=== PATIENT | male | born 1950 | race Caucasian/White ===

== ENCOUNTER 2022-03-11 14:49 | Inpatient (IN) | payer MEDICARE ==
[2022-03-11] MEDS ORDERED: Aspirin Chewable 81 MG TAB ONE (15:10)
[2022-03-11] MEDS ORDERED: Nitroglycerin 2% Ointment 1 INCH/1 GM Packet ONE (15:11)
[2022-03-11 15:25] LABS: #Eosinphils 0.2 10x3/uL (0.0-0.5); #Monocytes 0.6 10x3/uL (0.0-1.1); #Neutrophils 6.1 10x3/uL (1.5-8.4); %Basophils 0.5 % (0.0-2.0); %Eosinophils 2.2 % (0.0-6.0); %Lymphocytes 15.6 % (18.0-47.0); %Monocytes 6.7 % (0.0-10.0); %Neutrophils 74.5 % (40.0-75.0); Hemoglobin 15.2 g/dL (13.5-17.5); Mean Corpuscular HGB CONC 32.5 g/dL (32.0-36.0); Mean Corpuscular Volume 82.9 fl (81.2-95.1); Mean Platelet Volume 9.8 fl (7.4-10.4); Platelet Count 205 10x3/uL (150-450); RBC Distribution Width 16.4 % (11.5-14.5); Red Blood Cell (RBC) Count 5.63 10x6/uL (4.32-5.72); White Blood Cell (WBC) Count 8.2 10x3/uL (3.5-10.5)
[2022-03-11 15:38] LABS: ALT (SGPT) 29 U/L (8-55); AST (SGOT) 19 U/L (5-34); Albumin 4.3 g/dL (3.4-4.8); Alkaline Phosphatase 112 U/L (40-110); Anion Gap 16 mmol/L (10-20); BUN (Urea Nitrogen) 29 mg/dL (8.4-25.7); Bilirubin, Total 0.8 mg/dL (0.2-1.2); Calc. Creatinine Clearance 0 mL/min (70-130); Calcium 9.6 mg/dL (7.8-10.44); Carbon Dioxide 22 mmol/L (23-31); Chloride 108 mmol/L (98-107); Estimated GFR 52; Globulin 2.7 g/dL (2.4-3.5); Glucose 277 mg/dL (80-115); Lipase 18 U/L (8-78); Potassium 4.5 mmol/L (3.5-5.1); Sodium 141 mmol/L (136-145)
[2022-03-11] MEDS ORDERED: Lorazepam 2 MG/ML VIAL ONE (16:11)
[2022-03-11] MEDS ORDERED: Nitroglycerin 0.4 MG TAB (25 Tab Bottle) SL PRN (16:58)
[2022-03-11] MEDS ORDERED: Acetaminophen 325 MG TAB PO PRN (17:03)
[2022-03-11] MEDS ORDERED: Ondansetron ODT 4 MG TAB PO PRN (17:03)
[2022-03-11] MEDS ORDERED: Ondansetron PF 4 MG/2 ML Vial IVP PRN (17:03)
[2022-03-11 17:27] LABS: Magnesium 1.9 mg/dL (1.6-2.6)
[2022-03-11 18:32] VITALS: BMI 37.6
[2022-03-11 19:27] LABS: Troponin I Less than 0.010 ng/mL (< 0.028)
[2022-03-11] MEDS: Enoxaparin Sodium 40 MG/0.4 ML SYRINGE SC SCH (20:37)
[2022-03-11] MEDS ORDERED: Atorvastatin Calcium 20 MG TAB PO SCH (21:00)
[2022-03-11] MEDS: Nitroglycerin 2% Ointment 1 INCH/1 GM Packet TOP SCH (21:50)
[2022-03-11] MEDS ORDERED: buPROPion 75 MG TAB PO SCH (22:00)
[2022-03-11] MEDS ORDERED: Dextrose 50% Abboject 50 ML SYRINGE IVP PRN (23:30)
[2022-03-11] MEDS ORDERED: Dextrose 5% in Water 1,000 ML IV PRN (23:30)
[2022-03-11] MEDS: HumaLOG 300 UNITS/3 ML VIAL SC PRN (23:50)
[2022-03-12 05:58] LABS: #Basophils 0.1 10x3/uL (0.0-0.2); #Eosinphils 0.3 10x3/uL (0.0-0.5); #Monocytes 0.6 10x3/uL (0.0-1.1); #Neutrophils 3.9 10x3/uL (1.5-8.4); %Basophils 0.8 % (0.0-2.0); %Eosinophils 4.5 % (0.0-6.0); %Lymphocytes 23.9 % (18.0-47.0); %Monocytes 9.7 % (0.0-10.0); %Neutrophils 60.5 % (40.0-75.0); Hemoglobin 13.3 g/dL (13.5-17.5); Mean Corpuscular HGB CONC 32.4 g/dL (32.0-36.0); Mean Corpuscular Volume 83.4 fl (81.2-95.1); Mean Platelet Volume 9.7 fl (7.4-10.4); Platelet Count 179 10x3/uL (150-450); RBC Distribution Width 15.9 % (11.5-14.5); Red Blood Cell (RBC) Count 4.93 10x6/uL (4.32-5.72); White Blood Cell (WBC) Count 6.4 10x3/uL (3.5-10.5)
[2022-03-12 06:00] LABS: Anion Gap 14 mmol/L (10-20); BUN (Urea Nitrogen) 24 mg/dL (8.4-25.7); Calc. Creatinine Clearance 102 mL/min (70-130); Calcium 8.8 mg/dL (7.8-10.44); Carbon Dioxide 21 mmol/L (23-31); Chloride 112 mmol/L (98-107); Estimated GFR 67; Glucose 199 mg/dL (80-115); Sodium 143 mmol/L (136-145)
[2022-03-12] MEDS: Nitroglycerin 2% Ointment 1 INCH/1 GM Packet TOP SCH ×3 (07:31→23:00)
[2022-03-12] MEDS: Enoxaparin Sodium 40 MG/0.4 ML SYRINGE SC SCH ×2 (08:49→22:30)
[2022-03-12] MEDS: Aspirin Chewable 81 MG TAB PO SCH (08:49)
[2022-03-12] MEDS: buPROPion 75 MG TAB PO SCH ×2 (08:50→22:58)
[2022-03-12] MEDS: Lorazepam 1 MG TAB PO PRN ×2 (13:14→23:01)
[2022-03-12] MEDS: HumaLOG 300 UNITS/3 ML VIAL SC PRN ×2 (16:26→22:00)
[2022-03-12] MEDS: Rosuvastatin 20 MG TAB PO SCH (22:15)
[2022-03-12] MEDS: Icosapent Ethyl 1 GM CAPSULE PO SCH (22:58)
[2022-03-13] MEDS: Nitroglycerin 2% Ointment 1 INCH/1 GM Packet TOP SCH ×3 (05:23→20:56)
[2022-03-13] MEDS: HumaLOG 300 UNITS/3 ML VIAL SC PRN ×2 (06:24→20:55)
[2022-03-13] MEDS: Clopidogrel Bisulfate 75 MG TAB PO SCH (09:25)
[2022-03-13] MEDS: Enoxaparin Sodium 40 MG/0.4 ML SYRINGE SC SCH ×2 (09:25→20:53)
[2022-03-13] MEDS: Aspirin Chewable 81 MG TAB PO SCH (09:25)
[2022-03-13] MEDS: buPROPion 75 MG TAB PO SCH ×2 (09:26→20:55)
[2022-03-13] MEDS: Icosapent Ethyl 1 GM CAPSULE PO SCH ×2 (09:27→20:59)
[2022-03-13] MEDS: Lorazepam 1 MG TAB PO PRN ×2 (09:36→20:55)
[2022-03-13] MEDS: Lantus 1000 UNITS/10 ML VIAL SC SCH (09:39)
[2022-03-13] MEDS: Lisinopril 2.5 MG TAB PO SCH (14:53)
[2022-03-13] MEDS: HumaLOG 300 UNITS/3 ML VIAL SC SCH (17:11)
[2022-03-13] MEDS: Rosuvastatin 20 MG TAB PO SCH (20:55)
[2022-03-13] MEDS ORDERED: Lantus 1000 UNITS/10 ML VIAL SC SCH (21:00)
[2022-03-14 04:26] LABS: Hemoglobin 13.4 g/dL (13.5-17.5); Mean Corpuscular HGB CONC 31.7 g/dL (32.0-36.0); Mean Corpuscular Hemoglobin 27.2 pg (27.0-33.0); Mean Platelet Volume 10.2 fl (7.4-10.4); Platelet Count 195 10x3/uL (150-450); RBC Distribution Width 15.7 % (11.5-14.5); Red Blood Cell (RBC) Count 4.92 10x6/uL (4.32-5.72); White Blood Cell (WBC) Count 7.4 10x3/uL (3.5-10.5)
[2022-03-14 04:34] LABS: Anion Gap 16 mmol/L (10-20); BUN (Urea Nitrogen) 22 mg/dL (8.4-25.7); Calc. Creatinine Clearance 84 mL/min (70-130); Calcium 8.6 mg/dL (7.8-10.44); Carbon Dioxide 23 mmol/L (23-31); Cardiac Risk 3.3 (Less than 4.5); Chloride 108 mmol/L (98-107); Cholesterol 107 mg/dl (< 200 Desired); Estimated GFR 53; Glucose 286 mg/dL (80-115); HDL Cholesterol 32 mg/dL (>60 Neg Risk); LDL Cholesterol, Calculated 41 mg/dL; Potassium 4.5 mmol/L (3.5-5.1); Sodium 142 mmol/L (136-145); Triglycerides 168 mg/dL (Less than 150)
[2022-03-14 04:35] LABS: INR-International Normal Ratio 0.9; PTT 25.4 sec (22.0-33.0); Prothrombin Time 10.3 sec (9.5-12.1)
[2022-03-14] MEDS ORDERED: [UNRECOGNIZED DRUG - REMARK] FS SCH (05:00)
[2022-03-14] MEDS: Nitroglycerin 2% Ointment 1 INCH/1 GM Packet TOP SCH ×2 (06:13→14:09)
[2022-03-14] MEDS: HumaLOG 300 UNITS/3 ML VIAL SC SCH ×4 (06:14→16:15)
[2022-03-14] MEDS: Aspirin Chewable 81 MG TAB PO SCH (06:15)
[2022-03-14] MEDS: Lisinopril 2.5 MG TAB PO SCH (06:15)
[2022-03-14] MEDS: Clopidogrel Bisulfate 75 MG TAB PO SCH (06:16)
[2022-03-14] MEDS: buPROPion 75 MG TAB PO SCH (06:18)
[2022-03-14] MEDS: Lantus 1000 UNITS/10 ML VIAL SC SCH (07:48)
[2022-03-14] MEDS: Icosapent Ethyl 1 GM CAPSULE PO SCH (07:49)
[2022-03-14] MEDS ORDERED: Nitroglycerin 50 MG/250 ML BOT 250 ML ONE (08:15)
[2022-03-14] MEDS ORDERED: Bivalirudin 250 MG VIAL ONE (08:16)
[2022-03-14] MEDS ORDERED: Adenosine 6 MG/2 ML VIAL ONE (08:16)
[2022-03-14] MEDS ORDERED: Lidocaine 1% PF 5 ML VIAL ONE (08:16)
[2022-03-14] MEDS ORDERED: Heparin 10,000 UNITS/ 10 ML VIAL ONE (08:16)
[2022-03-14] MEDS ORDERED: Verapamil 5 MG/2 ML VIAL ONE (08:17)
[2022-03-14] MEDS ORDERED: Midazolam HCl 2 mg/2 ml Vial ONE (08:53)
[2022-03-14] MEDS ORDERED: Fentanyl 100 MCG/2 ML VIAL ONE (08:53)
[2022-03-14] MEDS ORDERED: Iopamidol 300 61% 100 ML VIAL FS ONE (08:58)
[2022-03-14] MEDS ORDERED: Tamsulosin HCl 0.4 MG CAP PO SCH (09:00)
[2022-03-14] MEDS: Sodium Chloride 0.9% 1,000 ML IV SCH ×2 (10:42→15:31)
[2022-03-14] MEDS: Lorazepam 1 MG TAB PO PRN (15:37)
[2022-03-14 17:11] VITALS: BP 134/73; TEMP 98
== END 2022-03-14 17:53 | disposition home health service (06) | DRG 287 ==
LOC: CSHERS 14:49 → CSHTELE 17:40 → OBSVTOIN 03-12 15:28
PROVIDERS: ADMIT Internal Medicine Geriatric Medicine; ATTEND Internal Medicine
PROC: 4A023N7 Measurement of Cardiac Sampling and Pressure, Left Heart, Percutaneous Approach (ICD-10-PCS; principal; 2022-03-14)
PROC: B2111ZZ Fluoroscopy of Multiple Coronary Arteries using Low Osmolar Contrast (ICD-10-PCS; 2022-03-14)
PROC: B2151ZZ Fluoroscopy of Left Heart using Low Osmolar Contrast (ICD-10-PCS; 2022-03-14)
DX: I25.118 Atherosclerotic heart disease of native coronary artery with other forms of angina pectoris (principal); I69.352 Hemiplegia and hemiparesis following cerebral infarction affecting left dominant side; N17.9 Acute kidney failure, unspecified; E78.5 Hyperlipidemia, unspecified; N18.31 Chronic kidney disease, stage 3a; I12.9 Hypertensive chronic kidney disease with stage 1 through stage 4 chronic kidney disease, or unspecified chronic kidney disease; E11.22 Type 2 diabetes mellitus with diabetic chronic kidney disease; E11.51 Type 2 diabetes mellitus with diabetic peripheral angiopathy without gangrene; F41.9 Anxiety disorder, unspecified; Z87.442 Personal history of urinary calculi; Z98.890 Other specified postprocedural states; Z90.49 Acquired absence of other specified parts of digestive tract; Z95.5 Presence of coronary angioplasty implant and graft; Z79.82 Long term (current) use of aspirin; Z79.4 Long term (current) use of insulin; Z79.899 Other long term (current) drug therapy; Z79.01 Long term (current) use of anticoagulants; Z79.84 Long term (current) use of oral hypoglycemic drugs; Z83.3 Family history of diabetes mellitus; Z82.49 Family history of ischemic heart disease and other diseases of the circulatory system; Z87.891 Personal history of nicotine dependence
CPT/HCPCS: 36415; 36416; 71045; 80048; 80053; 80061; 83690; 83735; 83880; 84443; 84484; 85025; 85027; 85610; 85730; 93005; 93306; 93458; 94660; 94760; 96372; 96374; 99152; 99153; C1769; C1894; G0378; J0153; J0583; J1644; J1650; J1815; J2060; J2250; J3010; J7050; Q9967

== ENCOUNTER 2022-05-25 16:29 | Emergency (ER) | payer MEDICARE ==
[~2022-05-25 16:29] MED LIST: Iopamidol 370 76% 100 ML VIAL ONE
[2022-05-25 17:19] LABS: #Eosinphils 0.1 10x3/uL (0.0-0.5); #Monocytes 0.5 10x3/uL (0.0-1.1); #Neutrophils 4.9 10x3/uL (1.5-8.4); %Basophils 0.6 % (0.0-2.0); %Eosinophils 1.7 % (0.0-6.0); %Lymphocytes 20.4 % (18.0-47.0); %Monocytes 7.2 % (0.0-10.0); %Neutrophils 69.4 % (40.0-75.0); Mean Corpuscular HGB CONC 33.2 g/dL (32.0-36.0); Mean Corpuscular Hemoglobin 27.5 pg (27.0-33.0); Mean Corpuscular Volume 82.7 fl (81.2-95.1); Mean Platelet Volume 10.4 fl (7.4-10.4); Platelet Count 169 10x3/uL (150-450); RBC Distribution Width 15.9 % (11.5-14.5); White Blood Cell (WBC) Count 7.1 10x3/uL (3.5-10.5)
[2022-05-25 17:32] LABS: ALT (SGPT) 16 U/L (8-55); AST (SGOT) 14 U/L (5-34); Albumin 3.6 g/dL (3.4-4.8); Alkaline Phosphatase 93 U/L (40-110); Anion Gap 14 mmol/L (10-20); BUN (Urea Nitrogen) 21 mg/dL (8.4-25.7); Bilirubin, Total 0.6 mg/dL (0.2-1.2); Calc. Creatinine Clearance 0 mL/min (70-130); Calcium 8.6 mg/dL (7.8-10.44); Carbon Dioxide 21 mmol/L (23-31); Chloride 111 mmol/L (98-107); Estimated GFR 55; Globulin 2.1 g/dL (2.4-3.5); Glucose 175 mg/dL (80-115); Potassium 4.3 mmol/L (3.5-5.1); Protein, Total 5.7 g/dL (5.8-8.1); Sodium 142 mmol/L (136-145)
== END 2022-05-25 21:43 | disposition home or self-care (01) ==
LOC: CSHERS 16:29
DX: R07.2 Precordial pain (principal); R00.0 Tachycardia, unspecified; E11.9 Type 2 diabetes mellitus without complications; E78.5 Hyperlipidemia, unspecified; I10 Essential (primary) hypertension; Z79.4 Long term (current) use of insulin
CPT/HCPCS: 71045; 71275; 80053; 83880; 84484; 85025; 85379; 93005; 93010; Q9967

== ENCOUNTER 2022-08-02 14:52 | Emergency (ER) | payer MEDICARE ==
[2022-08-02 17:46] LABS: #Basophils 0.1 10x3/uL (0.0-0.2); #Eosinphils 0.1 10x3/uL (0.0-0.5); #Monocytes 0.8 10x3/uL (0.0-1.1); %Basophils 0.6 % (0.0-2.0); %Eosinophils 0.8 % (0.0-6.0); %Lymphocytes 13.2 % (18.0-47.0); %Neutrophils 76.9 % (40.0-75.0); Hemoglobin 13.9 g/dL (13.5-17.5); Mean Corpuscular HGB CONC 33.3 g/dL (32.0-36.0); Mean Corpuscular Volume 84.3 fl (81.2-95.1); Mean Platelet Volume 10.2 fl (7.4-10.4); Platelet Count 182 10x3/uL (150-450); RBC Distribution Width 16.2 % (11.5-14.5); Red Blood Cell (RBC) Count 4.96 10x6/uL (4.32-5.72); White Blood Cell (WBC) Count 10.4 10x3/uL (3.5-10.5)
[2022-08-02 17:49] LABS: ALT (SGPT) 14 U/L (8-55); AST (SGOT) 13 U/L (5-34); Albumin 3.7 g/dL (3.4-4.8); Alkaline Phosphatase 86 U/L (40-110); Anion Gap 14 mmol/L (10-20); BUN (Urea Nitrogen) 24 mg/dL (8.4-25.7); Bilirubin, Total 1.1 mg/dL (0.2-1.2); Calc. Creatinine Clearance 0 mL/min (70-130); Calcium 8.4 mg/dL (7.8-10.44); Carbon Dioxide 22 mmol/L (23-31); Chloride 104 mmol/L (98-107); Estimated GFR 46; Globulin 2.2 g/dL (2.4-3.5); Glucose 297 mg/dL (80-115); Potassium 4.3 mmol/L (3.5-5.1); Protein, Total 5.9 g/dL (5.8-8.1); Sodium 136 mmol/L (136-145)
[2022-08-02 17:56] LABS: Bilirubin Neg (Negative); Blood, Urine 10 (Negative); Clarity Clear (Clear); Glucose, Urine (Dipstick) >=1000 mg/dL (Negative); Ketone, Urine Negative (Negative); Leukocyte 100 (Negative); Nitrite Negative (Negative); Protein, Urine (Dipstick) 15 mg/dl (Neg-Trace); Urobilinogen Normal mg/dL (Less than 2)
[2022-08-02 18:06] LABS: Bacteria/HPF Rare-Few HPF (None Seen); RBC/HPF 0-3 HPF (0-3); Squamous Epithelial 0-3 HPF (0-3)
== END 2022-08-02 19:51 | disposition home or self-care (01) ==
LOC: CSHERS 14:52
DX: R20.2 Paresthesia of skin (principal); M79.89 Other specified soft tissue disorders; I25.10 Atherosclerotic heart disease of native coronary artery without angina pectoris; E11.9 Type 2 diabetes mellitus without complications; Z79.4 Long term (current) use of insulin; E78.5 Hyperlipidemia, unspecified; I10 Essential (primary) hypertension; Z86.73 Personal history of transient ischemic attack (TIA), and cerebral infarction without residual deficits
CPT/HCPCS: 71045; 80053; 81003; 81015; 83880; 84484; 85025; 93005

== ENCOUNTER 2022-12-30 16:51 | Emergency (ER) | payer MEDICARE ==
[2022-12-30 17:44] LABS: #Basophils 0.1 10x3/uL (0.0-0.2); #Eosinphils 0.2 10x3/uL (0.0-0.5); #Monocytes 0.7 10x3/uL (0.0-1.1); #Neutrophils 6.8 10x3/uL (1.5-8.4); %Basophils 0.6 % (0.0-2.0); %Eosinophils 2.4 % (0.0-6.0); %Lymphocytes 20.2 % (18.0-47.0); %Monocytes 6.7 % (0.0-10.0); %Neutrophils 69.7 % (40.0-75.0); Hemoglobin 13.6 g/dL (13.5-17.5); Mean Corpuscular Hemoglobin 28.5 pg (27.0-33.0); Mean Corpuscular Volume 86.2 fl (81.2-95.1); Mean Platelet Volume 10.4 fl (7.4-10.4); Platelet Count 173 10x3/uL (150-450); RBC Distribution Width 15.7 % (11.5-14.5); Red Blood Cell (RBC) Count 4.78 10x6/uL (4.32-5.72); White Blood Cell (WBC) Count 9.8 10x3/uL (3.5-10.5)
[2022-12-30 18:01] LABS: ALT (SGPT) 24 U/L (8-55); AST (SGOT) 24 U/L (5-34); Albumin 3.6 g/dL (3.4-4.8); Alkaline Phosphatase 99 U/L (40-110); Anion Gap 20 mmol/L (10-20); BUN (Urea Nitrogen) 31 mg/dL (8.4-25.7); Bilirubin, Total 1.1 mg/dL (0.2-1.2); Calc. Creatinine Clearance 0 mL/min (70-130); Calcium 8.6 mg/dL (7.8-10.44); Carbon Dioxide 20 mmol/L (23-31); Chloride 102 mmol/L (98-107); Estimated GFR 44; Globulin 2.2 g/dL (2.4-3.5); Glucose 234 mg/dL (80-115); Potassium 4.2 mmol/L (3.5-5.1); Protein, Total 5.8 g/dL (5.8-8.1); Sodium 138 mmol/L (136-145)
[2022-12-30 19:04] LABS: Bilirubin Neg (Negative); Blood, Urine Negative (Negative); Clarity Clear (Clear); Glucose, Urine (Dipstick) 100 mg/dL (Negative); Ketone, Urine Negative (Negative); Leukocyte Negative (Negative); Nitrite Negative (Negative); Protein, Urine (Dipstick) Negative (Neg-Trace); Specific Gravity, Urine 1.025 (1.005-1.030); Urobilinogen Normal mg/dL (Less than 2)
[2022-12-30 19:12] LABS: Bacteria/HPF Rare-Few HPF (None Seen); CAUTI Indications for Culture Alt mental st,lethar; RBC/HPF 0-3 HPF (0-3); Squamous Epithelial 0-3 HPF (0-3); WBC/HPF 0-3 HPF (0-3)
[2022-12-30 19:13] LABS: Mucous/LPF 1+ LPF (<2+); Urine Culture Reflex No No
== END 2022-12-30 19:08 | disposition home or self-care (01) ==
LOC: CSHERS 16:51
DX: I12.9 Hypertensive chronic kidney disease with stage 1 through stage 4 chronic kidney disease, or unspecified chronic kidney disease (principal); N18.9 Chronic kidney disease, unspecified; N28.1 Cyst of kidney, acquired; E78.5 Hyperlipidemia, unspecified; E11.22 Type 2 diabetes mellitus with diabetic chronic kidney disease; Z86.73 Personal history of transient ischemic attack (TIA), and cerebral infarction without residual deficits; Z79.899 Other long term (current) drug therapy; Z79.4 Long term (current) use of insulin
CPT/HCPCS: 36415; 71045; 74176; 80053; 81001; 84484; 85025; 87086; 93005

== ENCOUNTER 2024-01-12 14:01 | Emergency (ER) | payer MEDICARE ==
[2024-01-12 14:43] LABS: #Basophils 0.04 10x3/uL (0.0-0.2); #Eosinphils 0.14 10x3/uL (0.0-0.5); #Monocytes 0.54 10x3/uL (0.0-1.1); #Neutrophils 6.32 10x3/uL (1.5-8.4); %Basophils 0.5 % (0.0-2.0); %Eosinophils 1.7 % (0.0-6.0); %Lymphocytes 14.9 % (18.0-47.0); %Monocytes 6.5 % (0.0-10.0); %Neutrophils 75.9 % (40.0-75.0); Hematocrit 42.2 % (38.8-50.0); Hemoglobin 14.7 g/dL (13.5-17.5); Mean Corpuscular HGB CONC 34.8 g/dL (32.0-36.0); Mean Corpuscular Hemoglobin 29.9 pg (27.0-33.0); Mean Corpuscular Volume 85.9 fL (81.2-95.1); Mean Platelet Volume 10.1 fL (7.4-10.4); Platelet Count 150 10x3/uL (150-450); RBC Distribution Width 14.2 % (11.5-14.5); Red Blood Cell (RBC) Count 4.91 10x6/uL (4.32-5.72); White Blood Cell (WBC) Count 8.3 10x3/uL (3.5-10.5)
[2024-01-12 14:58] LABS: ALT (SGPT) 15 U/L (8-55); AST (SGOT) 12 U/L (5-34); Alkaline Phosphatase 103 U/L (40-110); Anion Gap 13 mmol/L (10-20); BUN (Urea Nitrogen) 24 mg/dL (8.4-25.7); Bilirubin, Total 0.9 mg/dL (0.2-1.2); Calc. Creatinine Clearance 0 mL/min (70-130); Calcium 8.3 mg/dL (7.8-10.44); Carbon Dioxide 23 mmol/L (23-31); Chloride 107 mmol/L (98-107); Estimated GFR 56; Globulin 2.5 g/dL (2.4-3.5); Glucose 249 mg/dL (83-110); Potassium 4.3 mmol/L (3.5-5.1); Protein, Total 5.5 g/dL (5.8-8.1); Sodium 139 mmol/L (136-145)
[2024-01-12 15:03] LABS: Troponin I Less than 0.010 ng/mL (< 0.028)
== END 2024-01-12 16:20 | disposition home or self-care (01) ==
LOC: CSHERS 14:01
DX: R07.89 Other chest pain (principal); I12.9 Hypertensive chronic kidney disease with stage 1 through stage 4 chronic kidney disease, or unspecified chronic kidney disease; E11.9 Type 2 diabetes mellitus without complications; E11.22 Type 2 diabetes mellitus with diabetic chronic kidney disease; N18.30 Chronic kidney disease, stage 3 unspecified; I25.10 Atherosclerotic heart disease of native coronary artery without angina pectoris; Z79.4 Long term (current) use of insulin
CPT/HCPCS: 36415; 71045; 80053; 83605; 83880; 84484; 85025; 87040; 93005